=== PATIENT | female | born 1980 | race Hispanic/Latino ===

== ENCOUNTER 2025-01-15 12:03 | Emergency (ER) | payer OTHER, SELFPAY ==
[2025-01-15 12:09] VITALS: BP 173/88
[2025-01-15] MEDS: DILAUDID 0.5 MG IV (12:55)
[2025-01-15] MEDS: ZOFRAN 4 MG IV (12:55)
[2025-01-15] MEDS: NSS 1000 IV (12:56)
--- NOTE | 2025-01-15 16:20 | DOWNTIME ---
There was a [employer] Client Manager Speech Downtime on 01/15/2025 from 1230 to 01/15/2025 at 1550. Downtime documentation of patient's care, including medication administrations, has been reconciled in the electronic record per guidelines. Refer to the
patient's paper chart under the miscellaneous tab to see printed paper medication records and downtime forms.
[2025-01-15] MEDS: MORPHINE SULFATE 4 MG IV (16:32)
[2025-01-15 16:34] VITALS: BP 152/92
--- NOTE | 2025-01-15 16:47 | ED.GENMED ---
History of Present Illness
General
Chief Complaint: Flank Pain
Source: patient
Exam Limitations: none
Time Seen by Provider: 01/15/25 12:46
Nursing documentation reviewed up to this point in time: agreed with
History of Present Illness
History of Present Illness:
44-year-old female with history of kidney stones presents for right flank pain. Denies fever or chills, feels nauseous.
Past History
Past History
ED Past Medical History: None
ED Past Surgical History: None
Social History
Tobacco: Non-smoker
Alcohol: None
Review of Systems
Review of Systems
Allergies reviewed?: Yes
All Other Systems: ROS reviewed and negative except as documented in HPI and ROS
Constitutional: Denies fever or chills
ABD/GI: Reports abdominal pain and nausea
: Reports flank pain (Right); Denies dysuria, frequency or difficulty voiding
Musculoskeletal: Reports no symptoms
Skin: Reports no symptoms
Neurological: Reports no symptoms
Phy Exam
Physical Exam
Physical Exam:
GENERAL: Mild distress due to pain. A&Ox3.
CONSTITUTIONAL: Afebrile.
EYES: clear, conjunctivae normal
ENMT: moist mucus membranes, Pharynx nl
RESPIRATORY: Regular respirations, nonlabored, lungs clear.
CARDIOVASCULAR: Regular rate and rhythm, no murmurs, no rubs.
GI: Soft, normal BS. No right flank pain, she does have right lower quadrant tenderness
MUSCULOSKELETAL: Moves with ease. Well perfused.
SKIN: Warm, dry, pink
PSYCH: Anxious mood and affect. Well kept, interactive and appropriate
NEUROLOGIC: Awake, alert and oriented. No focal neurological deficits
Course
Orders/Labs/Results
Orders:
Orders
01/15/25 12:51
Ondansetron Injectable [Zofran] 4 mg .ROUTE .[facility] ONE
01/15/25 12:52
HYDROmorphone [Dilaudid] 0.5 mg .ROUTE .[facility] ONE
01/15/25 12:54
Ondansetron Injectable [Zofran] 4 mg IV NOW STA
01/15/25 12:55
0.9% Sodium Chloride 1000 ml [Nss] 1,000 ml IV BOLUS
HYDROmorphone [Dilaudid] 0.5 mg IV NOW STA
01/15/25 13:01
CT Abd/pel Without Iv Or Oral Urgent
Comment:
Reason For Exam: R flank pain
01/15/25 13:15
Beta HCG Quantitative Urgent
Complete Blood Count/With Diff Urgent
Comprehensive Metabolic Panel Urgent
Urinalysis Urgent
Urine Microscopic Urgent
01/15/25 14:14
Morphine Sulfate 4 mg .ROUTE .[facility] ONE
Ondansetron Injectable [Zofran] 4 mg .ROUTE .[facility] ONE
01/15/25 16:30
Morphine Sulfate 4 mg .ROUTE .[facility] ONE
Morphine Sulfate 4 mg IV NOW STA
Abnormal Lab Results
01/15/25
13:15
WBC 15.1 H 10^3/uL
(4.8-10.8)
MPV 11.6 H fL
(7.4-10.4)
Abs Immat Gran (auto) 0.1 H 10^3/uL
(0-0.05)
Absolute Neuts (auto) 13.1 H 10^3/uL
(1.4-6.5)
Neutrophils % 86.9 H %
(42.2-75.2)
Lymphocytes % 9.2 L %
(20.5-51.1)
Chloride 109 H mmol/L
(98-107)
Glucose 119 H mg/dl
(70-99)
Urine Ketones 3+ A
(Negative)
Urine Occult Blood 2+ A
(Negative)
Urine Bacteria Many A
(Negative)
Urine Albumin 2+ A
(Neg - Trace)
01/15/25 13:15
01/15/25 13:15
Vital Signs
Initial and Last Documented VS:
Initial Vital Signs
Temp Pulse Resp BP Pulse Ox
97.9 F 59 16 173/88 100
01/15/25 12:09 01/15/25 12:09 01/15/25 12:09 01/15/25 12:09 01/15/25 12:09
Last Documented Vital Signs
Temp Pulse Resp BP Pulse Ox
97.9 F 74 16 152/92 99
01/15/25 12:09 01/15/25 16:34 01/15/25 16:34 01/15/25 16:34 01/15/25 16:34
MDM/Problems Addressed
Differential Diagnosis Includes:
UTI, pyelonephritis, kidney stone
MDM/Problems Addressed:
(Computer downtime)
44-year-old female with history of kidney stones presents for right flank pain. Denies fever or chills, feels nauseous.
Patient states she had a miscarriage about 2 weeks ago her beta quant is < 2.39
CBC: WBC 15.1
CMP within normal limits
UA negative for infection
1600:
CAT scan radiology report read: IMPRESSION:
Approximate 3 mm calculus at the right ureterovesical junction with mild to moderate right hydroureteronephrosis and some mild right perinephric stranding..
After IV fluids and medications patient is feeling much better
*Critical Care Note
Total Time (30-74mins, 75-104mins- exclusive of procedures): Not Applicable
ED Attending Note
-
Portions of this chart may have been created with voice recognition software.� Occasional wrong word or��sound alike� substitutions may have occurred due to the inherent limitations of voice recognition software.
Discharge Plan
Departure
Patient Disposition: Home (Routine Discharge)
Date of Disposition: 01/15/25
Time of Disposition: 16:57
Patient with high blood pressure during this ER visit?: No
Condition: Good
Discharge Problem:
Calculus of distal right ureter
Instructions: Kidney Stones (DC), How to Strain Your Urine, Narcotic Pain Medication
Prescriptions:
New
tramadol 50 mg tablet
50 mg PO Q6H PRN (Reason: Pain) Qty: 7 0RF
No Action
tamsulosin [Flomax] 0.4 mg Capsule
0.4 mg PO DAILY Qty: 30 0RF
diclofenac potassium 50 mg tablet
50 mg PO BID PRN (Reason: pain) Qty: 14 0RF
ondansetron 4 mg Tablet,Disintegrating
4 mg PO BIDPRN PRN (Reason: nausea/vomiting) Qty: 10 0RF
oxycodone 5 mg capsule
5 mg PO TID PRN (Reason: pain) Qty: 10 0RF
amoxicillin-pot clavulanate 875-125 mg tablet
1 tab PO BID Qty: 20 0RF
Referrals:
NONE,* [Family Provider, Internal Medicine]
Naren Urrutia MD [Active, Urology]
Activity Restrictions/Additional Instructions:
As we discussed, you have a kidney stone that is now down by the bladder and should drop into the bladder anytime now and your pain should subside.
Return here immediately for fever above 100.5, vomiting, worsening pain or feeling sicker in any way
Strain your urine and if you see a stone put in the container provided
Call tomorrow and make an appointment with the urologist
I sent a prescription to your pharmacy for Tramadol to use for pain. Use ibuprofen 600 mg for mild to moderate pain and use the tramadol if needed for worse pain.
Interventions
Interventions:
*Risk Screen - Suicide Last Done: 01/15/25 12:09
*Neglect/Abuse Screening Last Done: 01/15/25 12:09
*Nursing Disposition Last Done: 01/15/25 17:36
PQ-Wqcr[facility] Assessment Last Done: 01/15/25 16:37
Discharge Date and Time
Discharge Date/Time: 01/15/25 17:37
Print Language: ESTONIAN
[2025-01-15 17:07] LABS: Urine Albumin 2+ (Neg - Trace); Urine Bilirubin Negative (Negative); Urine Character Slightly Cloudy (Clear); Urine Color Yellow; Urine Glucose Negative (Negative); Urine Ketone 3+ (Negative); Urine Leukocyte Negative (Negative); Urine Nitrite Negative (Negative); Urine Occult Blood 2+ (Negative); Urine Urobilinogen Negative (Neg - 1+)
[2025-01-15 17:08] LABS: Urine Bacteria Many (Negative)
[2025-01-15 17:09] LABS: Urine Red Blood Cell 0-2 /HPF (0-2); Urine Squamous Cell >30 /LPF (Few); Urine White Cell 0-2 /HPF (0-5)
[2025-01-15 17:10] LABS: Urine Calcium Oxalate Crystals Present
[2025-01-15 17:34] LABS: Beta HCG Quantitative < 2.39 mIU/ml
[2025-01-15 17:35] LABS: ALT (SGPT) 18 U/L (0-35); AST (SGOT) 18 U/L (14-36); Alkaline Phosphatase 46 U/L (38-126); Blood Urea Nitrogen 11 mg/dl (7-17); Calcium 9.9 mg/dl (8.4-10.2); Carbon Dioxide 25 mmol/L (22-30); Chloride 109 mmol/L (98-107); Glucose 119 mg/dl (70-99); Potassium 4.5 mmol/L (3.5-5.1); Sodium 140 mmol/L (135-145); Total Bilirubin 0.5 mg/dl (0.2-1.3); Total Protein 7.7 g/dl (6.3-8.2); eGFR > 60.00
[2025-01-15 17:44] LABS: % Basophils 0.3 % (0-2); % Eosinophils 0.5 % (0-6); % Immature Granulocytes 0.4 % (0-0.5); % Lymphocytes 9.2 % (20.5-51.1); % Monocytes 2.7 % (1.7-9.3); % Neutrophils 86.9 % (42.2-75.2); Absolute Eosinophils 0.1 10^3/uL (0-0.7); Absolute Immature Granulocytes 0.1 10^3/uL (0-0.05); Absolute Lymphocytes 1.4 10^3/uL (1.2-3.4); Absolute Monocytes 0.4 10^3/uL (0.1-0.6); Absolute Neutrophils 13.1 10^3/uL (1.4-6.5); Hematocrit 43.4 % (37.0-47.0); Hemoglobin 14.7 g/dL (12.0-16.0); Mean Corp Hgb Conc. 33.9 g/dL (33.0-37.0); Mean Corpuscular Hgb 29.6 pg (27.0-31.0); Mean Corpuscular Volume 87.3 fL (81.0-99.0); Mean Platelet Volume 11.6 fL (7.4-10.4); Nucleated Red Blood Cells % 0 %; Platelet Count 281 10^3/uL (130-400); Red Blood Cell Count 4.97 10^6/uL (4.20-5.40); Red Cell Dist. Width 12.2 % (11.5-14.5); White Blood Cell Count 15.1 10^3/uL (4.8-10.8)
== END 2025-01-15 17:37 | disposition home or self-care (01) ==
LOC: EMR 12:03
PROVIDERS: Registered Nurse; EMERGENCY PHYSICIAN Student in an Organized Health Care Education/Training Program
DX: N13.2 Hydronephrosis with renal and ureteral calculous obstruction (principal); Z87.442 Personal history of urinary calculi
CPT/HCPCS: 99285; 96374; 96375 ×2; 96361 ×3; 74176; 80053; 81003; 81015; 84702; 85025